=== PATIENT | female | born 1985 | race Caucasian/White ===

== ENCOUNTER 2018-11-17 20:33 | Emergency (ER) | payer MEDICAID ==
--- NOTE | 2018-11-17 21:37 | EDPHYS ---
Physician Documentation [facility] Name: Kitty Yen Age: 33 yrs Sex: Female : 1985 Arrival Date: 11/17/2018 Time: 20:34 Bed 11 Private MD: ED Physician Jorge Lanier HPI: 11/17 21:34 This 33 yrs old Female presents to ER via Ambulatory with complaints of jr8 Shoulder Pain. 21:34 The patient or guardian complains of pain. left shoulder. Context: The problem was jr8 sustained at home. Onset: The symptoms/episode began/occurred acutely, last night. Modifying factors: the symptoms are alleviated by nothing. The symptoms are aggravated by movement. Associated signs and symptoms: The patient has no apparent associated signs or symptoms. Severity of symptoms: At their worst the symptoms were mild, in the emergency department the symptoms are unchanged. The patient has not experienced similar symptoms in the past. The patient has not recently seen a physician. patient stated that she woke up with arm under her. Since then has had pain and soreness to left shoulder . 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 - Social history:: Smoking status: Patient/guardian denies using tobacco. - Ebola Screening: : No symptoms or risks identified at this time. ROS: 21:34 Eyes: Negative for injury, pain, redness, and discharge, ENT: Negative for injury, jr8 pain, and discharge, Neck: Negative for injury, pain, and swelling, Cardiovascular: Negative for chest pain, palpitations, and edema, Respiratory: Negative for shortness of breath, cough, wheezing, and pleuritic chest pain, Abdomen/GI: Negative for abdominal pain, nausea, vomiting, diarrhea, and constipation, Back: Negative for injury and pain, Skin: Negative for injury, rash, and discoloration, Neuro: Negative for headache, weakness, numbness, tingling, and seizure. 21:34 MS/extremity: Positive for pain, tenderness, of the left shoulder. Exam: 21:34 Eyes: Pupils equal round and reactive to light, extra-ocular motions intact. Lids and jr8 lashes normal. Conjunctiva and sclera are non-icteric and not injected. Cornea within normal limits. Periorbital areas with no swelling, redness, or edema. ENT: Nares patent. No nasal discharge, no septal abnormalities noted. Tympanic membranes are normal and external auditory canals are clear. Oropharynx with no redness, swelling, or masses, exudates, or evidence of obstruction, uvula midline. Mucous membranes moist. Neck: Trachea midline, no thyromegaly or masses palpated, and no cervical lymphadenopathy. Supple, full range of motion without nuchal rigidity, or vertebral point tenderness. No Meningismus. Cardiovascular: Regular rate and rhythm with a normal S1 and S2. No gallops, murmurs, or rubs. Normal PMI, no JVD. No pulse deficits. Respiratory: Lungs have equal breath sounds bilaterally, clear to auscultation and percussion. No rales, rhonchi or wheezes noted. No increased work of breathing, no retractions or nasal flaring. Abdomen/GI: Soft, non-tender, with normal bowel sounds. No distension or tympany. No guarding or rebound. No evidence of tenderness throughout. Back: No spinal tenderness. No costovertebral tenderness. Full range of motion. Skin: Warm, dry with normal turgor. Normal color with no rashes, no lesions, and no evidence of cellulitis. Neuro: Awake and alert, GCS 15, oriented to person, place, time, and situation. Cranial nerves II-XII grossly intact. Motor strength 5/5 in all extremities. Sensory grossly intact. Cerebellar exam normal. Normal gait. 21:34 Musculoskeletal/extremity: Extremities: grossly normal except: noted in the left shoulder: pain, tenderness, ROM: intact in all extremities, full active range of motion, full passive range of motion, limited active range of motion due to pain, limited passive range of motion due to pain, Circulation is intact in all extremities. Sensation intact. Vital Signs: 20:39 BP 117 / 82; Pulse 76; Resp 14 S; Temp 98.5(O); Pulse Ox 99% on R/A; Weight 63.5 kg bb (R); Height 5 ft. 6 in. (167.64 cm) (R); Pain 7/10; 20:39 Body Mass Index 22.60 (63.50 kg, 167.64 cm) mireya MDM: 21:09 Patient medically screened. jr8 21:34 Data reviewed: vital signs, nurses notes, and as a result, I will discharge patient. jr8 Data interpreted: Pulse oximetry: on room air is 99 %. Interpretation: normal. Counseling: I had a detailed discussion with the patient and/or guardian regarding: the historical points, exam findings, and any diagnostic results supporting the discharge/admit diagnosis, the need for outpatient follow up, a family practitioner, to return to the emergency department if symptoms worsen or persist or if there are any questions or concerns that arise at home. Administered Medications: No medications were administered Disposition: 11/17/18 21:37 Discharged to Home. Impression: Pain in left shoulder. - Condition is Stable. - Discharge Instructions: Joint Pain, Musculoskeletal Pain, Shoulder Pain. - Prescriptions for Ibuprofen 800 mg Oral Tablet - take 1 tablet by ORAL route every 12 hours As needed take with food; 20 tablet. Cyclobenzaprine 10 mg Oral Tablet - take 1 tablet by ORAL route every 8 hours As needed; 30 tablet. - Medication Reconciliation Form, Thank You Letter, Antibiotic Education, Prescription Opioid Use form. - Follow up: Private Physician; When: As needed; Reason: Recheck today's complaints, Continuance of care, Re-evaluation by your physician. - Problem is new. - Symptoms have improved. Addendum: 11/18/2018 22:31 Co-signature as Attending Physician, Jorge Lanier MD I agree with the assessment and t w4 plan of care. Signatures: Katelyn Agustin RN RN aj Ballard, Brenda, RN RN bb Roszak, Josh, PA PA jr8 Jorge Lanier MD MD tw4 Corrections: (The following items were deleted from the chart) 11/17 21:42 21:37 11/17/2018 21:37 Discharged to Home. Impression: Pain in left shoulder. Condition aj is Stable. Forms are Medication Reconciliation Form, Thank You Letter, Antibiotic Education, Prescription Opioid Use. Follow up: Private Physician; When: As needed; Reason: Recheck today's complaints, Continuance of care, Re-evaluation by your physician. Problem is new. Symptoms have improved. jr8
--- NOTE | 2018-11-17 21:37 | ER ---
Nurse's Notes [facility] Name: Kitty Yen Age: 33 yrs Sex: Female : 1985 Arrival Date: 11/17/2018 Time: 20:34 Bed 11 Private MD: Diagnosis: Pain in left shoulder Presentation: 11/17 20:35 Presenting complaint: Patient states: she must have slept wrong and woke up with left bb shoulder pain and feels like something is popping. Transition of care: patient was not received from another setting of care. Onset of symptoms was November 16, 2018. Risk Assessment: Do you want to hurt yourself or someone else? Patient reports no desire to harm self or others. Initial Sepsis Screen: Does the patient meet any 2 criteria? No. Patient's initial sepsis screen is negative. Does the patient have a suspected source of infection? No. Patient's initial sepsis screen is negative. Care prior to arrival: None. 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 - Social history:: Smoking status: Patient/guardian denies using tobacco. - Ebola Screening: : No symptoms or risks identified at this time. Screenin:32 Abuse screen: Denies threats or abuse. Denies injuries from another. Nutritional aj screening: No deficits noted. Tuberculosis screening: No symptoms or risk factors identified. Fall Risk None identified. Assessment: 21:32 General: Appears in no apparent distress. comfortable, Behavior is calm, cooperative, aj appropriate for age. Pain: Complains of pain in anterior aspect of left shoulder. Neuro: Level of Consciousness is awake, alert, obeys commands, Oriented to person, place, time, situation, Appropriate for age. Respiratory: Airway is patent Respiratory effort is even, unlabored, Respiratory pattern is regular, symmetrical. Derm: Skin is intact, is healthy with good turgor, Skin is pink, warm \T\ dry. normal. Musculoskeletal: Reports pain in anterior aspect of left shoulder. 21:41 Reassessment: Patient appears in no apparent distress at this time. No changes from aj previously documented assessment. Patient and/or family updated on plan of care and expected duration. Pain level reassessed. Patient is alert, oriented x 3, equal unlabored respirations, skin warm/dry/pink. Vital Signs: 20:39 BP 117 / 82; Pulse 76; Resp 14 S; Temp 98.5(O); Pulse Ox 99% on R/A; Weight 63.5 kg bb (R); Height 5 ft. 6 in. (167.64 cm) (R); Pain 7/10; 20:39 Body Mass Index 22.60 (63.50 kg, 167.64 cm) bb ED Course: 20:34 Patient arrived in ED. am2 20:38 Triage completed. bb 20:39 Arm band placed on left wrist. Patient placed in an exam room, on a stretcher, on pulse bb oximetry. Family accompanied patient. 21:09 [facility]ov[facility] Dinh [facility]. mary 21:09 Jorge Lanier MD is Attending Physician. 8 21:32 Katelyn Agustin, RN is Primary Nurse. aj 21:32 Patient has correct armband on for positive identification. aj 21:32 No provider procedures requiring assistance completed. Patient did not have IV access aj during this emergency room visit. Administered Medications: No medications were administered Outcome: 21:37 Discharge ordered by . jr8 21:41 Discharged to home ambulatory. aj 21:41 Condition: good 21:41 Discharge instructions given to patient, Instructed on discharge instructions, follow up and referral plans. medication usage, Demonstrated understanding of instructions, follow-up care, medications, Prescriptions given X 2. 21:42 Patient left the ED. aj Signatures: Katelyn Agustin, RN RN Celsa Dowell RN RN bb Roszak, Josh, PA PA jr8 Moreno, Amanda amJabari
== END 2018-11-17 21:42 | disposition home or self-care (01) ==
LOC: ER 20:33
DX: M25.512 Pain in left shoulder (principal)
CPT/HCPCS: 99283

== ENCOUNTER 2019-02-10 11:08 | Emergency (ER) | payer MEDICAID ==
[2019-02-10 11:39] LABS: Urine Blood 2+ (NEG); Urine Glucose NEGATIVE (NEG); Urine Protein TRACE (NEG); Urine Specific Gravity 1.015 (1.005-1.030); Urine pH 5.5 (5.0-7.0)
[2019-02-10 11:44] LABS: Absolute Lymphocytes (CBC) 2.3 K/uL (0.7-4.9); Absolute Monocytes 0.9 K/uL (0.1-1.3); Absolute Neutrophil 11.5 K/uL (1.8-8.0); Basophils % 0.1 % (0-1.3); Eosinophils % 0.9 % (0-4.4); Hematocrit 33.3 % (36.0-45.0); Lymphocytes % 15.7 % (15.3-44.8); MPV 8.8 fL (7.6-11.3); Monocytes % 5.8 % (3.3-12.3); RBC Red Blood Cell Count 3.63 M/uL (3.86-4.86)
[2019-02-10 12:04] LABS: BUN Blood Urea Nitrogen 9 mg/dL (7-18); Bicarbonate 28 mmol/L (21-32); Glucose Level 74 mg/dL (74-106); HCG, Quantitative < 1 mIU/mL (1-3); Potassium 3.4 mmol/L (3.5-5.1); Sodium Level 143 mmol/L (136-145)
--- NOTE | 2019-02-10 12:37 | EDPHYS ---
Physician Documentation [facility] Name: Kitty Yen Age: 33 yrs Sex: Female : 1985 Arrival Date: 02/10/2019 Time: 11:10 Bed 16 Private MD: ED Physician Fer Tubbs HPI: 02/10 11:48 This 33 yrs old Female presents to ER via Ambulatory with complaints of jr8 Vaginal Bleeding. 11:48 The patient presents with vaginal bleeding that is moderate, with clots. Onset: The jr8 symptoms/episode began/occurred gradually, 2 week(s) ago. Modifying factors: The symptoms are alleviated by nothing, the symptoms are aggravated by nothing. Associated signs and symptoms: The patient has no apparent associated signs or symptoms. Severity of symptoms: At their worst the symptoms were mild, in the emergency department the symptoms are unchanged. The patient's method of control includes nothing. The patient has not experienced similar symptoms in the past. The patient has not recently seen a physician. Stated that she started her menstrual cycle two weeks ago. Usually lasts for 4 days and then subsides. Has been going on for over two weeks now. Denies any other symptoms . 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 - Social history:: Smoking status: Patient/guardian denies using tobacco. - Ebola Screening: : No symptoms or risks identified at this time. ROS: 11:48 Eyes: Negative for injury, pain, redness, and discharge, ENT: Negative for injury, jr8 pain, and discharge, Neck: Negative for injury, pain, and swelling, Cardiovascular: Negative for chest pain, palpitations, and edema, Respiratory: Negative for shortness of breath, cough, wheezing, and pleuritic chest pain, Abdomen/GI: Negative for abdominal pain, nausea, vomiting, diarrhea, and constipation, Back: Negative for injury and pain, MS/Extremity: Negative for injury and deformity, Skin: Negative for injury, rash, and discoloration, Neuro: Negative for headache, weakness, numbness, tingling, and seizure. 11:48 : Positive for vaginal bleeding, menstrual abnormality. Exam: 11:48 Eyes: Pupils equal round and reactive to light, extra-ocular motions intact. Lids and jr8 lashes normal. Conjunctiva and sclera are non-icteric and not injected. Cornea within normal limits. Periorbital areas with no swelling, redness, or edema. ENT: Nares patent. No nasal discharge, no septal abnormalities noted. Tympanic membranes are normal and external auditory canals are clear. Oropharynx with no redness, swelling, or masses, exudates, or evidence of obstruction, uvula midline. Mucous membranes moist. Neck: Trachea midline, no thyromegaly or masses palpated, and no cervical lymphadenopathy. Supple, full range of motion without nuchal rigidity, or vertebral point tenderness. No Meningismus. Cardiovascular: Regular rate and rhythm with a normal S1 and S2. No gallops, murmurs, or rubs. Normal PMI, no JVD. No pulse deficits. Respiratory: Lungs have equal breath sounds bilaterally, clear to auscultation and percussion. No rales, rhonchi or wheezes noted. No increased work of breathing, no retractions or nasal flaring. Abdomen/GI: Soft, non-tender, with normal bowel sounds. No distension or tympany. No guarding or rebound. No evidence of tenderness throughout. Back: No spinal tenderness. No costovertebral tenderness. Full range of motion. Skin: Warm, dry with normal turgor. Normal color with no rashes, no lesions, and no evidence of cellulitis. MS/ Extremity: Pulses equal, no cyanosis. Neurovascular intact. Full, normal range of motion. Neuro: Awake and alert, GCS 15, oriented to person, place, time, and situation. Cranial nerves II-XII grossly intact. Motor strength 5/5 in all extremities. Sensory grossly intact. Cerebellar exam normal. Normal gait. Vital Signs: 11:13 BP 136 / 84; Pulse 98; Resp 16 S; Temp 98.0(TE); Pulse Ox 100% on R/A; Weight 70.31 kg aa5 (R); Height 5 ft. 6 in. (167.64 cm) (R); Pain 4/10; 12:25 BP 127 / 89; Pulse 94; Resp 17; Pulse Ox 99% on R/A; tw2 13:08 BP 119 / 86; Pulse 92; Resp 17; Pulse Ox 99% on R/A; tw2 11:13 Body Mass Index 25.02 (70.31 kg, 167.64 cm) aa5 MDM: 11:18 Patient medically screened. 8 12:36 Data reviewed: vital signs, nurses notes, lab test result(s), and as a result, I will 8 discharge patient. Data interpreted: Pulse oximetry: on room air is 99 %. Interpretation: normal. Counseling: I had a detailed discussion with the patient and/or guardian regarding: the historical points, exam findings, and any diagnostic results supporting the discharge/admit diagnosis, lab results, the need for outpatient follow up, an OB/Gyne specialist, to return to the emergency department if symptoms worsen or persist or if there are any questions or concerns that arise at home. 02/10 11:28 Order name: CBC with Diff; Complete Time: 12:[address] [facility] 02/10 11:28 Order name: Basic Metabolic Panel; Complete Time: 12:[address] [facility] 02/10 11:28 Order name: HCG-Quantitative; Complete Time: 12:[address] [facility] 02/10 11:35 Order name: Urine Dipstick--Ancillary (enter results); Complete Time: 11:48 bd 02/10 11:35 Order name: Urine --Ancillary (enter results); Complete Time: 11:48 bd Administered Medications: No medications were administered Disposition: 16:11 Co-signature as Attending Physician, Fer Tubbs MD. rn Disposition: 02/10/19 12:36 Discharged to Home. Impression: Abnormal uterine and vaginal bleeding, unspecified. - Condition is Stable. - Discharge Instructions: Abnormal Uterine Bleeding. - Medication Reconciliation Form, Thank You Letter, Antibiotic Education, Prescription Opioid Use form. - Follow up: Private Physician; When: 2 - 3 days; Reason: Recheck today's complaints, Continuance of care, Re-evaluation by your physician. - Problem is new. - Symptoms have improved. Signatures: Dispatcher [employer] EDFer Madison MD MD rn Calderon, Audri, RN RN aa5 Jovani Dinh PA PA jr8 Estee Molina RN RN tw2 Corrections: (The following items were deleted from the chart) 13:09 12:36 02/10/2019 12:36 Discharged to Home. Impression: Abnormal uterine and vaginal tw2 bleeding, unspecified. Condition is Stable. Forms are Medication Reconciliation Form, Thank You Letter, Antibiotic Education, Prescription Opioid Use. Follow up: Private Physician; When: 2 - 3 days; Reason: Recheck today's complaints, Continuance of care, Re-evaluation by your physician. Problem is new. Symptoms have improved. jr8
--- NOTE | 2019-02-10 12:37 | ER ---
Nurse's Notes [facility] Name: Kitty Yen Age: 33 yrs Sex: Female : 1985 Arrival Date: 02/10/2019 Time: 11:10 Bed 16 Private MD: Diagnosis: Abnormal uterine and vaginal bleeding, unspecified Presentation: 02/10 11:11 Presenting complaint: Patient states: vaginal bleeding that began 13 days ago. Pt aa5 states "I started bleeding 1 week before my period and about 3 days ago it seemed like I passed some tissue looking thing". Pt c/o left lower abd pain. Pt states "I don't know if I am ". Transition of care: patient was not received from another setting of care. Onset of symptoms was January 2019. Risk Assessment: Do you want to hurt yourself or someone else? Patient reports no desire to harm self or others. Initial Sepsis Screen: Does the patient meet any 2 criteria? No. Patient's initial sepsis screen is negative. Does the patient have a suspected source of infection? No. Patient's initial sepsis screen is negative. Care prior to arrival: None. 11:11 Method Of Arrival: Ambulatory aa5 11:11 Acuity: PENNY 3 aa5 Triage Assessment: 13:09 General: Appears in no apparent distress. Behavior is calm, cooperative, appropriate tw2 for age. 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 - Social history:: Smoking status: Patient/guardian denies using tobacco. - Ebola Screening: : No symptoms or risks identified at this time. Screenin:19 Abuse screen: Denies threats or abuse. Nutritional screening: No deficits noted. tw2 Tuberculosis screening: No symptoms or risk factors identified. Fall Risk None identified. Assessment: 11:20 General: Appears in no apparent distress. Behavior is calm, cooperative, appropriate tw2 for age. Pain: Complains of pain in pelvis. Neuro: Level of Consciousness is awake, alert, obeys commands, Oriented to person, place, time, situation. Cardiovascular: Heart tones S1 S2 Capillary refill < 3 seconds Patient's skin is warm and dry. Respiratory: Airway is patent Respiratory effort is even, unlabored, Respiratory pattern is regular, symmetrical, Breath sounds are clear bilaterally. GI: No signs and/or symptoms were reported involving the gastrointestinal system. Abdomen is flat, Bowel sounds present X 4 quads. : Urine is blood tinged, Reports vaginal bleeding that is bright red, moderate flow. EENT: No signs and/or symptoms were reported regarding the EENT system. Derm: No signs and/or symptoms reported regarding the dermatologic system. Musculoskeletal: No signs and/or symptoms reported regarding the musculoskeletal system. Circulation, motion, and sensation intact. Range of motion: intact in all extremities. 12:25 Reassessment: Patient appears in no apparent distress at this time. No changes from tw2 previously documented assessment. Patient and/or family updated on plan of care and expected duration. Pain level reassessed. Patient is alert, oriented x 3, equal unlabored respirations, skin warm/dry/pink. 13:09 Reassessment: Patient appears in no apparent distress at this time. No changes from tw2 previously documented assessment. Patient and/or family updated on plan of care and expected duration. Pain level reassessed. Patient is alert, oriented x 3, equal unlabored respirations, skin warm/dry/pink. Vital Signs: 11:13 BP 136 / 84; Pulse 98; Resp 16 S; Temp 98.0(TE); Pulse Ox 100% on R/A; Weight 70.31 kg aa5 (R); Height 5 ft. 6 in. (167.64 cm) (R); Pain 4/10; 12:25 BP 127 / 89; Pulse 94; Resp 17; Pulse Ox 99% on R/A; tw2 13:08 BP 119 / 86; Pulse 92; Resp 17; Pulse Ox 99% on R/A; tw2 11:13 Body Mass Index 25.02 (70.31 kg, 167.64 cm) aa5 ED Course: 11:10 Patient arrived in ED. rg4 11:11 Arm band placed on. aa5 11:13 Triage completed. aa5 11:18 Jovani Dinh PA is PHCP. jr8 11:18 Fer Tubbs MD is Attending Physician. jr8 11:19 Molina, Estee, RN is Primary Nurse. tw2 11:19 Placed in gown. Bed in low position. Pulse ox on. NIBP on. tw2 11:40 Inserted saline lock: 22 gauge in left antecubital area, using aseptic technique. Blood tw2 collected. 13:09 No provider procedures requiring assistance completed. IV discontinued, intact, tw2 bleeding controlled, No redness/swelling at site. Pressure dressing applied. Administered Medications: No medications were administered Outcome: 12:36 Discharge ordered by MD. hernandez 13:09 Discharged to home ambulatory, with family. tw2 13:09 Condition: stable 13:09 Discharge instructions given to patient, family, Instructed on discharge instructions, follow up and referral plans. Demonstrated understanding of instructions, follow-up care. 13:09 Patient left the ED. tw2 Signatures: Lucille Peacock, RN RN aa5 Jovani Dinh PA PA jr8 Estee Molina RN RN tw2 hSu Kaufman 4
== END 2019-02-10 13:09 | disposition home or self-care (01) ==
LOC: ER 11:08
DX: N93.9 Abnormal uterine and vaginal bleeding, unspecified (principal); F41.9 Anxiety disorder, unspecified; F32.9 Major depressive disorder, single episode, unspecified
CPT/HCPCS: 36415; 80048; 81003; 81025; 84702; 85025; 99283

== ENCOUNTER 2022-11-30 10:02 | Emergency (ER) | payer OTHER ==
--- NOTE | 2022-11-30 11:16 | ER ---
Nurse's Notes [facility] Name: Kitty Fairbanks Age: 37 yrs Sex: Female : 1985 Arrival Date: 11/30/2022 Time: 10:05 Bed 11 Private MD: Diagnosis: Radiculopathy, cervical region Presentation: 11/30 10:24 Chief complaint: Right sided neck pain that radiates to right arm upon waking today. hb Coronavirus screen: At this time, the client does not indicate any symptoms associated with coronavirus-19. Ebola Screen: No symptoms or risks identified at this time. Initial Sepsis Screen: Does the patient meet any 2 criteria? No. Patient's initial sepsis screen is negative. Does the patient have a suspected source of infection? No. Patient's initial sepsis screen is negative. Risk Assessment: Do you want to hurt yourself or someone else? Patient reports no desire to harm self or others. Onset of symptoms was November 30, 2022. 10:24 Method Of Arrival: Ambulatory hb 10:24 Acuity: PENNY 4 hb Historical: - Allergies: 10:25 suspected gasous anestesia; hb - PMHx: 10:25 Anxiety; Depression; Rheumatoid Arthritis; hb - Immunization history:: Adult Immunizations up to date. - Social history:: Smoking status: Reported history of juuling and/or vaping. Screenin:30 [facility] ED Fall Risk Assessment (Adult) History of falling in the last 3 months, aa5 including since admission No falls in past 3 months (0 pts) Confusion or Disorientation No (0 pts) Intoxicated or Sedated No (0 pts) Impaired Gait No (0 pts) Mobility Assist Device Used No (0 pt) Altered Elimination No (0 pt) Score/Fall Risk Level 0 - 2 = Low Risk. Abuse screen: Denies threats or abuse. Nutritional screening: No deficits noted. Tuberculosis screening: No symptoms or risk factors identified. Assessment: 10:30 General: Appears uncomfortable, Behavior is calm, cooperative. Pain: Complains of pain aa5 in right side of neck Pain currently is 8 out of 10 on a pain scale. Quality of pain is described as sharp, Is continuous. Neuro: Level of Consciousness is awake, alert, obeys commands, Oriented to person, place, time, situation. Cardiovascular: Patient's skin is warm and dry. Respiratory: Airway is patent Respiratory effort is even, unlabored, Respiratory pattern is regular, symmetrical. GI: No signs and/or symptoms were reported involving the gastrointestinal system. : No signs and/or symptoms were reported regarding the genitourinary system. EENT: No signs and/or symptoms were reported regarding the EENT system. Derm: Skin is pink, warm \T\ dry. Musculoskeletal: Range of motion: intact in all extremities. 11:45 Reassessment: Patient is alert, oriented x 3, equal unlabored respirations, skin aa5 warm/dry/pink. Patient states feeling better. Patient states symptoms have improved. Vital Signs: 10:24 BP 113 / 84; Pulse 79; Resp 16; Temp 97.8; Pulse Ox 100% on R/A; Weight 86.18 kg; hb Height 5 ft. 6 in. (167.64 cm); Pain 8/10; 10:24 Body Mass Index 30.67 (86.18 kg, 167.64 cm) hb ED Course: 10:05 Patient arrived in ED. rg4 10:05 Thalia Dial FNP-C [facility]. snw 10:05 Neo Rodriguez MD is Attending Physician. snw 10:25 Triage completed. hb 10:25 Arm band placed on. hb 10:30 Patient has correct armband on for positive identification. Bed in low position. Call aa5 light in reach. Side rails up X 1. 11:45 No provider procedures requiring assistance completed. Patient did not have IV access aa5 during this emergency room visit. Administered Medications: 11:22 Drug: Ketorolac 30 mg Route: IM; Site: left gluteus; aa5 11:45 Follow up: Response: No adverse reaction; Pain is decreased aa5 11:22 Drug: Valium (diazepam) 5 mg Route: PO; aa5 11:45 Follow up: Response: No adverse reaction aa5 Medication: 11:45 VIS not applicable for this client. aa5 Outcome: 11:16 Discharge ordered by . snw 11:45 Discharged to home ambulatory, with family. aa5 11:45 Condition: improved 11:45 Discharge instructions given to patient, Instructed on discharge instructions, follow up and referral plans. medication usage, Demonstrated understanding of instructions, follow-up care, medications, Prescriptions given X 2. 11:47 Patient left the ED. aa5 Signatures: Thalia Dial, PRINCIPAL TECHNICAL ARCHITECT-C PRINCIPAL TECHNICAL ARCHITECT-Csnw Lucille Peacock, RN RN aa5 Zoila Por, RN RN Shu Abbasi 4
--- NOTE | 2022-11-30 11:16 | EDPHYS ---
Physician Documentation [facility] Name: Kitty Fairbanks Age: 37 yrs Sex: Female : 1985 Arrival Date: 11/30/2022 Time: 10:05 Bed 11 Private MD: ED Physician Neo Rodriguez HPI: 11/30 14:14 This 37 yrs old Female presents to ER via Ambulatory with complaints of Neck Pain, snw <24hrs Old, Shoulder Pain, Arm Pain. 14:14 The patient or guardian complains of tenderness. The symptoms are located on the right snw posterior aspect of neck, right lateral aspect of neck and right anterior aspect of neck. Onset: The symptoms/episode began/occurred acutely, and became persistent. Context: The problem was sustained at home, The neck injury/problem resulted from Pt believes she slept wrong. The pain radiates to the right arm. Severity of symptoms: At their worst the symptoms were moderate. The patient has experienced a previous episode. The patient has not recently seen a physician. Historical: - Allergies: 10:25 suspected gasous anestesia; hb - PMHx: 10:25 Anxiety; Depression; Rheumatoid Arthritis; hb - Immunization history:: Adult Immunizations up to date. - Social history:: Smoking status: Reported history of juuling and/or vaping. ROS: 14:13 Constitutional: Negative for fever, chills, and weight loss, Eyes: Negative for injury, snw pain, redness, and discharge, ENT: Negative for injury, pain, and discharge, Cardiovascular: Negative for chest pain, palpitations, and edema, Respiratory: Negative for shortness of breath, cough, wheezing, and pleuritic chest pain, Abdomen/GI: Negative for abdominal pain, nausea, vomiting, diarrhea, and constipation, Back: Negative for injury and pain, : Negative for injury, bleeding, discharge, and swelling, MS/Extremity: Negative for injury and deformity, Skin: Negative for injury, rash, and discoloration, Neuro: Negative for headache, weakness, numbness, tingling, and seizure. 14:13 Neck: Positive for pain with movement, pain at rest, stiffness. Exam: 11:29 Constitutional: This is a well developed, well nourished patient who is awake, alert, snw and in no acute distress. Head/Face: Normocephalic, atraumatic. Eyes: Pupils equal round and reactive to light, extra-ocular motions intact. Lids and lashes normal. Conjunctiva and sclera are non-icteric and not injected. Cornea within normal limits. Periorbital areas with no swelling, redness, or edema. ENT: Nares patent. No nasal discharge, no septal abnormalities noted. Tympanic membranes are normal and external auditory canals are clear. Oropharynx with no redness, swelling, or masses, exudates, or evidence of obstruction, uvula midline. Mucous membranes moist. Chest/axilla: Normal chest wall appearance and motion. Nontender with no deformity. No lesions are appreciated. Cardiovascular: Regular rate and rhythm with a normal S1 and S2. No gallops, murmurs, or rubs. Normal PMI, no JVD. No pulse deficits. Respiratory: Lungs have equal breath sounds bilaterally, clear to auscultation and percussion. No rales, rhonchi or wheezes noted. No increased work of breathing, no retractions or nasal flaring. Abdomen/GI: Soft, non-tender, with normal bowel sounds. No distension or tympany. No guarding or rebound. No evidence of tenderness throughout. Back: No spinal tenderness. No costovertebral tenderness. Full range of motion. Skin: Warm, dry with normal turgor. Normal color with no rashes, no lesions, and no evidence of cellulitis. MS/ Extremity: Pulses equal, no cyanosis. Neurovascular intact. Full, normal range of motion. Neuro: Awake and alert, GCS 15, oriented to person, place, time, and situation. Cranial nerves II-XII grossly intact. Motor strength 5/5 in all extremities. Sensory grossly intact. Cerebellar exam normal. Normal gait. Psych: Awake, alert, with orientation to person, place and time. Behavior, mood, and affect are within normal limits. 11:29 Neck: External neck: is normal, C-spine: appears grossly normal, no vertebral tenderness, ROM/movement: limited range of motion, that is moderate, with flexion. Vital Signs: 10:24 BP 113 / 84; Pulse 79; Resp 16; Temp 97.8; Pulse Ox 100% on R/A; Weight 86.18 kg; hb Height 5 ft. 6 in. (167.64 cm); Pain 8/10; 10:24 Body Mass Index 30.67 (86.18 kg, 167.64 cm) hb MDM: 10:18 Patient medically screened. snw 14:13 Differential diagnosis: arthritis, Neck Contusion Osteoarthritis torticollis. Data snw reviewed: vital signs, nurses notes. Care significantly affected by the following chronic conditions: RA. Counseling: I had a detailed discussion with the patient and/or guardian regarding: the historical points, exam findings, and any diagnostic results supporting the discharge/admit diagnosis, the presence of at least one elevated blood pressure reading (>120/80) during this emergency department visit, the need for outpatient follow up, to return to the emergency department if symptoms worsen or persist or if there are any questions or concerns that arise at home. Special discussion: Based on the history and exam findings, there is no indication for further emergent testing or inpatient evaluation. I discussed with the patient/guardian the need to see the primary care provider for further evaluation of the symptoms. I discussed with the patient/guardian the need to see the craft manager for further evaluation of the symptoms. Administered Medications: 11:22 Drug: Ketorolac 30 mg Route: IM; Site: left gluteus; aa5 11:45 Follow up: Response: No adverse reaction; Pain is decreased aa5 11:22 Drug: Valium (diazepam) 5 mg Route: PO; aa5 11:45 Follow up: Response: No adverse reaction aa5 Disposition: 12:53 Co-signature as Attending Physician, Neo Rodriguez MD I reviewed the patient's care rt provided by the Advanced Practice Provider and agree with the diagnosis and treatment plan. Disposition Summary: 11/30/22 11:16 Discharge Ordered Location: Home snw Condition: Stable snw Diagnosis - Radiculopathy, cervical region snw Followup: snw - With: Emergency Department - When: As needed - Reason: Worsening of condition Followup: snw - With: Private Physician - When: 2 - 3 days - Reason: Recheck today's complaints, Continuance of care, Re-evaluation by your physician Discharge Instructions: - Discharge Summary Sheet snw - Cervical Radiculopathy snw - Heat Therapy snw Forms: - Medication Reconciliation Form snw - Thank You Letter snw - Antibiotic Education snw - Prescription Opioid Use snw Prescriptions: - Prednisone 20 mg Oral Tablet - take 2 tablets by ORAL route once daily for 5 days; 10 tablet; Refills: 0, snw Product Selection Permitted - orphenadrine citrate 100 mg Oral Tablet Sustained Release - take 1 tablet by ORAL route 2 times per day As needed; 20 tablet; Refills: 0, snw Product Selection Permitted Signatures: Thalia Dial, KRYSTIN-C AUTOGLAZIER-Csnw Lucille Peacock RN RN aa5 Zoila Pro RN RN Neo Rodriguez MD MD rt
[2022-11-30] MEDS ORDERED: KETOROLAC 30 MG/ML INJ ONE (11:21)
[2022-11-30] MEDS ORDERED: DIAZEPAM 5 MG TABLET ONE (11:21)
[2022-11-30 11:54] VITALS: BP 113/84; TEMP 97.8; O2SAT 100
== END 2022-11-30 11:47 | disposition home or self-care (01) ==
LOC: ER 10:02
DX: M54.12 Radiculopathy, cervical region (principal)
CPT/HCPCS: 96372; 99283

== ENCOUNTER 2025-03-03 17:18 | Emergency (ER) | payer SELFPAY ==
--- OUTSIDE RECORDS SUMMARY | 2025-03-03 17:21 | XMS REPORT | Continuity of Care Document ---
Author Name Unknown Address [address] [facility] [address] [place] [address] [facility] [place] Address [address] [facility]. 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 Name Role Phone Maureen Montgomery Primary Care Physician [phone] LORA PERRY Attending Clinician Unavailable COSME KEENAN Attending Clinician COSME Cuellar Attending Clinician Basil chatterjee Lab, Ang - Db Attending Clinician Unavailable Pob, Adc Lab Main Attending Clinician UnavailDeepa Ferro MD Attending Clinician [phone] DEEPA COURTNEY Attending Clinician Unavailable Doctor Unassigned, [place] Attending Clinician U Natasha Vega Attending Clinician [phone] NATASHA INGRAM Attending Clinician Unavailable Livier Fuller MD Attending Clinician [phone] LIVIER FULLER Attending Clinician Unavailable Dudley Liao DO Attending Clinician [phone] COSME KEENAN Admitting Clinician Basil chatterjee Payers Payer Name Policy Type Policy Number Effective Date Expirati on Date Source Numbrs AG [facility] STAR [id number] 2022 00:00:00 Problems Condition Name Condition Details Condition Category Status Onset Date Resolution Date Last Treatment Date Treating Clinician Comments Source Bilateral hand pain Bilateral hand pain Disease Active 07-26 00:00: 00 [facility] Cervical radiculopa thy Cervical radiculopa thy Disease Active - 00:00: 00 [facility] Follow-up exam Follow-up exam Disease Active 12-04 00:00: 00 [facility] Attempting to conceive Attempting to conceive Disease Active 2021-11 00:00: 00 [facility] BMI 36.0-36.9, adult BMI 36.0-36.9, adult Disease Active 2021-11 00:00: 00 [facility] Need for hepatitis C screening test Need for hepatitis C screening test Disease Active 07-04 00:00: 00 [facility] Class 1 obesity without serious comorbidit y with body mass index (BMI) of 33.0 to 33.9 in adult, unspecifie d obesity type Class 1 obesity without serious comorbidit y with body mass index (BMI) of 33.0 to 33.9 in adult, unspecifie d obesity type Disease Active 2019-11 00:00: 00 [facility] Abnormal uterine bleeding (AUB) Abnormal uterine bleeding (AUB) Disease Active 2019-11 00:00: 00 [facility] Well woman exam with routine gynecologi cathi exam Well woman exam with routine gynecologi cathi exam Disease Active 03-10 00:00: 00 [facility] Missed menses Missed menses Disease Active 03-10 00:00: 00 [facility] BMI 26.0-26.9, adult BMI 26.0-26.9, adult Disease Active 03-10 00:00: 00 [facility] BMI 26.0-26.9, adult BMI 26.0-26.9, adult Disease Active 03-10 00:00: 00 [facility] Allergies, Adverse Reactions, Alerts Allergy Name Allergy Type Status Severity Reaction(s) Onset Date Inactive Date Treating Clinician Comments Source Propofol Propensi ty to adverse reaction s to drug Active Other - See comments 03-10 00:00: 00 Patient states she goes unconscio us when receives anesthesi a [facility] PROPOFOL DRUG INGREDI Active High Other-Cmnt 03-10 00:00: 00 [facility] Anesthes ia (Not Checked) Propensi ty to adverse reaction to drug Active 03-08 00:00: 00 Social History Social Habit Start Date Stop Date Quantity Comments Source Sexual orientation [facility] History SDOH Alcohol Frequency [facility] History SDOH Alcohol Std Drinks [facility] History SDOH Alcohol Binge [facility] Alcohol intake 2024-02-04 00:00:00 2024-02-04 00:00:00 Current drinker of alcohol (finding) [facility] History of Social function 2023-07-26 00:00:00 2023-07-26 00:00:00 [facility] Exposure to SARS-CoV-2 (event) 2022-11-23 00:00:00 2022-12-03 14:37:00 Yes [facility] Tobacco use and exposure 2022-09-14 00:00:00 2022-09-14 00:00:00 Smokeless tobacco non-user [facility] Tobacco Comment 2022-07-04 00:00:00 2022-07-04 00:00:00 vapes [facility] Alcohol Comment 2022-07-04 00:00:00 2022-07-04 00:00:00 rare [facility] History of tobacco use 2020-11-04 00:00:00 Cigarette Smoker [facility] Sex Assigned At 1985 00:00:00 1985 00:00:00 [facility] Smoking Status Start Date Stop Date Source Ex-smoker 2022-09-14 00:00:00 2022-09-14 00:00:00 [facility] Smokes tobacco daily 2022-07-04 00:00:00 [facility] Medications Ordered Medication Name Filled Medication Name Start Date Stop Date Current Medication? Ordering Clinician Indication Dosage Frequency Signature (SIG) Comments Components Source ibuprofen 800 mg tablet 07-26 00:00: 00 Yes [id number] 800mg Take 1 tablet by mouth every 6 (six) hours as needed for Pain (scale 4-6). [facility] methylPREDN ISolone (MEDROL, LUCIEN,) 4 mg tablets 07-26 00:00: 00 08-01 04:59 :00 No [id number] Take by mouth SEE-INSTRU CTIONS for 5 days. follow package directions [facility] orphenadrin e 100 mg SR tablet 12-04 15:36: 03 12-04 00:00 :00 No 100mg Take 100 mg by mouth every 12 (twelve) hours. [facility] cyclobenzap rine 5 mg tablet 12-04 00:00: 00 Yes [id number] 5mg Take 1 tablet by mouth in the morning and 1 tablet at noon and 1 tablet in the evening. [facility] ibuprofen 800 mg tablet 12-04 00:00: 00 12-19 05:59 :00 No [id number] 800mg Take 1 tablet by mouth every 6 (six) hours as needed for Pain (scale 4-6) for up to 14 days. [facility] predniSONE 20 mg tablet 11-30 00:00: 00 07-26 00:00 :00 No [facility] No known medications 2021-11 10:17: 15 No No known medication s [facility] No known medications 2021-11 11:12: 56 No No known medication s [facility] No known medications 07-04 08:31: 57 No No known medication s [facility] amoxicillin 500 mg tablet 07-17 00:00: 00 No 1mg Lexapro 10 mg tablet 06-21 00:00: 00 No 1mg Lexapro 10 mg tablet 05-31 00:00: 00 No 1mg trazodone 100 mg tablet 05-03 00:00: 00 No 12mg Lexapro 10 mg tablet 03-08 00:00: 00 No 1mg trazodone 50 mg tablet 03-08 00:00: 00 No 12mg Immunizations Ordered Immunization Name Filled Immunization Name Date Status Comments Source TDAP 2022-03-26 00:00:00 Completed [facility] Influenza Virus Vaccine Quad .5 mL IM 6+ MO 2022-03-26 00:00:00 Completed [facility] SARS-COV-2 COVID-19 PFIZER VACCINE 2021-10-23 00:00:00 Completed [facility] SARS-COV-2 COVID-19 PFIZER VACCINE 2021-10-23 00:00:00 Completed [facility] SARS-COV-2 COVID-19 PFIZER VACCINE 2021-10-23 00:00:00 Completed [facility] SARS-COV-2 COVID-19 PFIZER VACCINE 2021-10-23 00:00:00 Completed [facility] SARS-COV-2 COVID-19 PFIZER VACCINE 2021-10-23 00:00:00 Completed [facility] SARS-COV-2 COVID-19 PFIZER VACCINE 2021-10-23 00:00:00 Completed [facility] SARS-COV-2 COVID-19 PFIZER VACCINE 2021-10-23 00:00:00 Completed [facility] SARS-COV-2 COVID-19 PFIZER VACCINE 2021-10-23 00:00:00 Completed [facility] SARS-COV-2 COVID-19 PFIZER VACCINE 2021-10-02 00:00:00 Completed [facility] SARS-COV-2 COVID-19 PFIZER VACCINE 2021-10-02 00:00:00 Completed [facility] SARS-COV-2 COVID-19 PFIZER VACCINE 2021-10-02 00:00:00 Completed [facility] SARS-COV-2 COVID-19 PFIZER VACCINE 2021-10-02 00:00:00 Completed [facility] SARS-COV-2 COVID-19 PFIZER VACCINE 2021-10-02 00:00:00 Completed [facility] SARS-COV-2 COVID-19 PFIZER VACCINE 2021-10-02 00:00:00 Completed [facility] SARS-COV-2 COVID-19 PFIZER VACCINE 2021-10-02 00:00:00 Completed [facility] SARS-COV-2 COVID-19 PFIZER VACCINE 2021-10-02 00:00:00 Completed [facility] TDAP 2012-12-05 00:00:00 Completed [facility] TDAP 2012-12-05 00:00:00 Completed [facility] TDAP 2012-12-05 00:00:00 Completed [facility] TDAP 2012-12-05 00:00:00 Completed [facility] TDAP 2012-12-05 00:00:00 Completed [facility] TDAP 2012-12-05 00:00:00 Completed [facility] TDAP 2012-12-05 00:00:00 Completed [facility] TDAP 2012-12-05 00:00:00 Completed [facility] HEP B, Adult Dosage 2011-06-14 00:00:00 Completed [facility] TDAP 2011-06-14 00:00:00 Completed [facility] HEP B, Adult Dosage 2011-01-26 00:00:00 Completed [facility] HEP B, Adult Dosage 2010-12-26 00:00:00 Completed [facility] Tetanus/Diptheria 2003-06-02 00:00:00 Completed [facility] MMR 1999-05-31 00:00:00 Completed [facility] DTP 1993-04-07 00:00:00 Completed [facility] Poliovirus, Live, Oral, Trivalent 1993-04-07 00:00:00 Completed [facility] DTP 1993-01-13 00:00:00 Completed [facility] Poliovirus, Live, Oral, Trivalent 1993-01-13 00:00:00 Completed [facility] DTP 1988-12-31 00:00:00 Completed [facility] Poliovirus, Live, Oral, Trivalent 1988-12-31 00:00:00 Completed [facility] MMR 1988-11-12 00:00:00 Completed [facility] DTP 1987 00:00:00 Completed [facility] Poliovirus, Live, Oral, Trivalent 1987 00:00:00 Completed [facility] TDAP Unknown Completed [facility] SARS-COV-2 COVID-19 PFIZER VACCINE Unknown Completed [facility] DTP Unknown Completed [facility] HEP B, Adult Dosage Unknown Completed [facility] MMR Unknown Completed [facility] Poliovirus, Live, Oral, Trivalent Unknown Completed [facility] Tetanus/Diptheria Unknown [facility]ine Quad .5 mL IM 6+ MO (FLUZONE/FLULAVAL/F LUARIX) Unknown Completed [facility] TDAP Unknown Completed [facility] SARS-COV-2 COVID-19 PFIZER VACCINE Unknown Completed [facility] DTP Unknown Completed [facility] HEP B, Adult Dosage Unknown Completed [facility] MMR Unknown Completed [facility] Poliovirus, Live, Oral, Trivalent Unknown Completed [facility] Tetanus/Diptheria Unknown [facility] Influ[facility] Virus Vaccine Quad .5 mL IM 6+ MO (FLUZONE/FLULAVAL/F LUARIX) Unknown Completed [facility] TDAP Unknown Completed [facility] SARS-COV-2 COVID-19 PFIZER VACCINE Unknown Completed [facility] DTP Unknown Completed [facility] HEP B, Adult Dosage Unknown Completed [facility] MMR Unknown Completed [facility] Poliovirus, Live, Oral, Trivalent Unknown Completed [facility]anus[facility]heria [facility]ine [facility] .5 mL IM 6+ MO (FLUZONE/FLULAVAL/F LUARIX) Unknown Completed [facility] TDAP Unknown Completed [facility] SARS-COV-2 COVID-19 PFIZER VACCINE Unknown Completed [facility] DTP Unknown Completed [facility] HEP B, Adult Dosage Unknown Completed [facility] MMR Unknown Completed [facility] Poliovirus, Live, Oral, Trivalent Unknown Completed [facility] Tetanus/Diptheria Unknown [facility]ine Quad .5 mL IM 6+ MO (FLUZONE/FLULAVAL/F LUARIX) Unknown Completed [facility] TDAP Unknown Completed [facility] SARS-COV-2 COVID-19 PFIZER VACCINE Unknown Completed [facility] DTP Unknown Completed [facility] HEP B, Adult Dosage Unknown Completed [facility] MMR Unknown Completed [facility] Poliovirus, Live, Oral, Trivalent Unknown Completed [facility] Tetanus/Diptheria Unknown [facility] Influ[facility] Virus Vaccine Quad .5 mL IM 6+ MO (FLUZONE/FLULAVAL/F LUARIX) Unknown Completed [facility] Tetanus/Diptheria Unknown [facility] Vaccine Quad .5 mL IM 6+ MO (FLUZONE/FLULAVAL/F LUARIX) Unknown Completed [facility] TDAP Unknown Completed [facility] SARS-COV-2 COVID-19 PFIZER VACCINE Unknown Completed [facility] DTP Unknown Completed [facility] HEP B, Adult Dosage Unknown Completed [facility] MMR Unknown Completed [facility] Poliovirus, Live, Oral, Trivalent Unknown Completed [facility] Tetanus/Diptheria Unknown [facility] Influ[facility] Virus Vaccine Quad .5 mL IM 6+ MO (FLUZONE/FLULAVAL/F LUARIX) Unknown Completed [facility] TDAP Unknown Completed [facility] SARS-COV-2 COVID-19 PFIZER VACCINE Unknown Completed [facility] DTP Unknown Completed [facility] HEP B, Adult Dosage Unknown Completed [facility] MMR Unknown Completed [facility] Poliovirus, Live, Oral, Trivalent Unknown Completed [facility] TDAP Unknown Completed [facility] SARS-COV-2 COVID-19 PFIZER VACCINE Unknown Completed [facility] DTP Unknown Completed [facility] HEP B, Adult Dosage Unknown Completed [facility] MMR Unknown Completed [facility] Poliovirus, Live, Oral, Trivalent Unknown Completed [facility] Tetanus/Diptheria Unknown [facility] Virus Vaccine Quad .5 mL IM 6+ MO (FLUZONE/FLULAVAL/F LUARIX) Unknown Completed [facility] Tetanus/Diptheria Unknown [facility] Virus Vaccine Quad .5 mL IM 6+ MO (FLUZONE/FLULAVAL/F LUARIX) Unknown Completed [facility] TDAP Unknown Completed [facility] SARS-COV-2 COVID-19 PFIZER VACCINE Unknown Completed [facility] DTP Unknown Completed [facility] HEP B, Adult Dosage Unknown Completed [facility] MMR Unknown Completed [facility] Poliovirus, Live, Oral, Trivalent Unknown Completed [facility] TDAP Unknown Completed [facility] SARS-COV-2 COVID-19 PFIZER VACCINE Unknown Completed [facility] DTP Unknown Completed [facility] HEP B, Adult Dosage Unknown Completed [facility] MMR Unknown Completed [facility] Poliovirus, Live, Oral, Trivalent Unknown Completed [facility] Tetanus/Diptheria Unknown [facility]ine Quad .5 mL IM 6+ MO (FLUZONE/FLULAVAL/F LUARIX) Unknown Completed [facility] TDAP Unknown Completed [facility] SARS-COV-2 COVID-19 PFIZER VACCINE Unknown Completed [facility] DTP Unknown Completed [facility] HEP B, Adult Dosage Unknown Completed [facility] MMR Unknown Completed [facility] Poliovirus, Live, Oral, Trivalent Unknown Completed [facility] Tetanus/Diptheria Unknown [facility] Quad .5 mL IM 6+ MO (FLUZONE/FLULAVAL/F LUARIX) Unknown Completed [facility] Vital Signs Vital Name Observation Time Observation Value Comments S ource Systolic blood pressure 2024-02-04 13:56:00 117 mm[Hg] [facility] Diastolic blood pressure 2024-02-04 13:56:00 84 mm[Hg] [facility] Heart rate 2024-02-04 13:56:00 85 [facility] 2024-02-04 13:56:00 18 /min [facility] Body height 2024-02-04 13:56:00 167.6 cm [facility] Body weight 2024-02-04 13:56:00 102.604 kg [facility] BMI 2024-02-04 13:56:00 36.51 kg/m2 [facility] Systolic blood pressure 2023-11-15 18:47:00 125 mm[Hg] [facility] Diastolic blood pressure 2023-11-15 18:47:00 81 mm[Hg] [facility] Heart rate 2023-11-15 18:47:00 95 /min [facility] Body temperature 2023-11-15 18:47:00 36.67 Janneth [facility] Respiratory rate 2023-11-15 18:47:00 18 /min [facility] Body height 2023-11-15 18:47:00 167.6 cm [facility] 2023-11-15 18:47:00 102.513 kg [facility] BMI 2023-11-15 18:47:00 36.48 kg/m2 [facility] Systolic blood pressure 2023-07-26 18:20:00 119 mm[Hg] [facility] Diastolic blood pressure 2023-07-26 18:20:00 75 mm[Hg] [facility] Heart rate 2023-07-26 18:20:00 90 /min [facility] Respiratory rate 2023-07-26 18:20:00 18 /min [facility] Body height 2023-07-26 18:20:00 167.6 cm [facility] Body weight 2023-07-26 18:20:00 97.07 kg [facility] BMI 2023-07-26 18:20:00 34.54 kg/m2 [facility] Oxygen saturation in Arterial blood by Pulse oximetry 2023-07-26 18:20:00 99 /min [facility] Systolic blood pressure 2022-12-04 21:23:00 105 mm[Hg] [facility] Diastolic blood pressure 2022-12-04 21:23:00 74 mm[Hg] [facility] Heart rate 2022-12-04 21:23:00 75 /min [facility] Body temperature 2022-12-04 21:23:00 36.78 Janneth [facility] Body height 2022-12-04 21:23:00 167.6 cm [facility] Body weight 2022-12-04 21:23:00 93.441 kg [facility] BMI 2022-12-04 21:23:00 33.25 kg/m2 [facility] Oxygen saturation in Arterial blood by Pulse oximetry 2022-12-04 21:23:00 98 /min [facility] Systolic blood pressure 2022-09-14 16:10:00 106 mm[Hg] [facility] Diastolic blood pressure 2022-09-14 16:10:00 73 mm[Hg] [facility] Heart rate 2022-09-14 16:10:00 98 /min [facility] Body temperature 2022-09-14 16:10:00 36.94 Janneth [facility] Respiratory rate 2022-09-14 16:10:00 18 /min [facility] Body height 2022-09-14 16:10:00 167.6 cm [facility] Body weight 2022-09-14 16:10:00 93.985 kg [facility] BMI 2022-09-14 16:10:00 33.44 kg/m2 [facility] Systolic blood pressure 2022-09-07 15:58:00 99 mm[Hg] [facility] Diastolic blood pressure 2022-09-07 15:58:00 66 mm[Hg] [facility] Heart rate 2022-09-07 15:58:00 81 /min [facility] Body height 2022-09-07 15:58:00 167.6 cm [facility] Body weight 2022-09-07 15:58:00 93.441 kg [facility] BMI 2022-09-07 15:58:00 33.25 kg/m2 [facility] Oxygen saturation in Arterial blood by Pulse oximetry 2022-09-07 15:58:00 99 /min [facility] Systolic blood pressure 2022-07-04 13:29:00 104 mm[Hg] [facility] Diastolic blood pressure 2022-07-04 13:29:00 72 mm[Hg] [facility] Heart rate 2022-07-04 13:29:00 84 /min [facility] Body temperature 2022-07-04 13:29:00 36.78 Janneth [facility] Body height 2022-07-04 13:29:00 167.6 cm [facility] Body weight 2022-07-04 13:29:00 95.255 kg [facility] BMI 2022-07-04 13:29:00 33.89 kg/m2 [facility] Oxygen saturation in Arterial blood by Pulse oximetry 2022-07-04 13:29:00 100 /min [facility] BP Systolic 2022-05-11 15:39:00 111 mm[Hg] BP Diastolic 2022-05-11 15:39:00 79 mm[Hg] Weight Measured 2022-05-11 15:39:00 210.80 pounds Height Measured 2022-05-11 15:39:00 67.00 inches Body Temperature 2022-05-11 15:39:00 98.30 degrees Heart Rate 2022-05-11 15:39:00 89.00 /min Respiratory Rate 2022-05-11 15:39:00 BP Systolic 2018-07-14 10:16:00 109 mm[Hg] BP Diastolic 2018-07-14 10:16:00 73 mm[Hg] Weight Measured 2018-07-14 10:16:00 145.20 pounds Height Measured 2018-07-14 10:16:00 67.00 inches Body Temperature 2018-07-14 10:16:00 98.10 degrees Heart Rate 2018-07-14 10:16:00 93.00 /min Respiratory Rate 2018-07-14 10:16:00 17.00 /min BP Systolic 2016-07-17 16:05:00 107 mm[Hg] BP Diastolic 2016-07-17 16:05:00 74 mm[Hg] Weight Measured 2016-07-17 16:05:00 192.00 pounds Height Measured 2016-07-17 16:05:00 67.00 inches Body Temperature 2016-07-17 16:05:00 98.20 degrees Heart Rate 2016-07-17 16:05:00 90.00 /min Respiratory Rate 2016-07-17 16:05:00 18.00 /min BP Systolic 2016-06-21 15:38:00 120 mm[Hg] BP Diastolic 2016-06-21 15:38:00 80 mm[Hg] Weight Measured 2016-06-21 15:38:00 189.00 pounds Height Measured 2016-06-21 15:38:00 67.00 inches Body Temperature 2016-06-21 15:38:00 98.60 degrees Heart Rate 2016-06-21 15:38:00 76.00 /min Respiratory Rate 2016-06-21 15:38:00 16.00 /min BP Systolic 2016-06-20 11:06:00 104 mm[Hg] BP Diastolic 2016-06-20 11:06:00 71 mm[Hg] Weight Measured 2016-06-20 11:06:00 188.40 pounds Height Measured 2016-06-20 11:06:00 67.00 inches Body Temperature 2016-06-20 11:06:00 98.50 degrees Heart Rate 2016-06-20 11:06:00 77.00 /min Respiratory Rate 2016-06-20 11:06:00 18.00 /min BP Systolic 2016-05-31 13:34:00 123 mm[Hg] BP Diastolic 2016-05-31 13:34:00 86 mm[Hg] Weight Measured 2016-05-31 13:34:00 173.00 pounds Height Measured 2016-05-31 13:34:00 67.00 inches Body Temperature 2016-05-31 13:34:00 98.00 degrees Heart Rate 2016-05-31 13:34:00 77.00 /min Respiratory Rate 2016-05-31 13:34:00 BP Systolic 2016-03-08 13:49:00 134 mm[Hg] BP Diastolic 2016-03-08 13:49:00 89 mm[Hg] Weight Measured 2016-03-08 13:49:00 196.00 pounds Height Measured 2016-03-08 13:49:00 67.00 inches Body Temperature 2016-03-08 13:49:00 98.00 degrees Heart Rate 2016-03-08 13:49:00 74.00 /min Respiratory Rate 2016-03-08 13:49:00 BP Systolic 2016-02-09 13:10:00 104 mm[Hg] BP Diastolic 2016-02-09 13:10:00 65 mm[Hg] Weight Measured 2016-02-09 13:10:00 190.80 pounds Height Measured 2016-02-09 13:10:00 67.00 inches Body Temperature 2016-02-09 13:10:00 98.60 degrees Heart Rate 2016-02-09 13:10:00 84.00 /min Respiratory Rate 2016-02-09 13:10:00 15.00 /min BP Systolic 2016-02-09 13:04:00 104 mm[Hg] BP Diastolic 2016-02-09 13:04:00 65 mm[Hg] Weight Measured 2016-02-09 13:04:00 190.80 pounds Height Measured 2016-02-09 13:04:00 67.00 inches Body Temperature 2016-02-09 13:04:00 98.60 degrees Heart Rate 2016-02-09 13:04:00 84.00 /min Respiratory Rate 2016-02-09 13:04:00 15.00 /min BP Systolic 2015-12-14 15:47:00 115 mm[Hg] BP Diastolic 2015-12-14 15:47:00 79 mm[Hg] Weight Measured 2015-12-14 15:47:00 176.20 pounds Height Measured 2015-12-14 15:47:00 67.00 inches Body Temperature 2015-12-14 15:47:00 98.00 degrees Heart Rate 2015-12-14 15:47:00 71.00 /min Respiratory Rate 2015-12-14 15:47:00 15.00 /min Procedures Procedure Date / Time Performed Performing Clinician Source US PELVIS COMPLETE WITH TRANSVAGINAL 2024-02-11 14:15:00 Cosme Keenan [facility] POCT TEST 2023-11-15 00:00:00 AdumDeepa [facility] URIC ACID 2023-07-26 18:55:00 Natasha Ingram [facility] RHEUMATOID FACTOR 2023-07-26 18:55:00 Natasha Ingram [facility] C-REACTIVE PROTEIN 2023-07-26 18:55:00 [facility] 2023-07-26 18:55:00 Natasha Ingram Un [facility] ASSIGNMENT OF BENEFITS 2023-07-26 18:08:34 Docto r Unassigned, [place] [facility] REFERRAL- REQUEST/RESPONSE 2022-09-14 06:01:00 Doctor Unassigned, [place] [facility] [facility] Plan of Care Planned Activity Planned Date Details Comments Source Goal Plan of Care Note [code = 15644-7] Goal Plan of Care Note [code = 43390-4] Goal Plan of Care Note [code = 85136-9] Goal Plan of Care Note [code = 50760-7] Goal Plan of Care Note [code = 32194-8] Goal Plan of Care Note [code = 73418-1] Goal Plan of Care Note [code = 38727-8] Goal Plan of Care Note [code = 84534-5] Goal Plan of Care Note [code = 69917-2] Goal Plan of Care Note [code = 31986-0] Goal Plan of Care Note [code = 82127-6] Goal Plan of Care Note [code = 63337-3] Encounters Start Date/Time End Date/Time Encounter Type Admission Type Attending Clinicians Care Facility Care Department Encounter ID Source 2024-02-11 08:44:38 2024-02-11 23:59:00 [facility] [id number] 2024-02-11 08:44:38 2024-02-11 23:59:00 Hospital Encounter Veronique pichardo Cosme [facility] 1..840.114 350.1.13.10 4.2.7.2.686 [id number] [facility] 2024-02-06 08:30:00 2024-02-06 08:45:00 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[facility] 1..840.114 350.1.13.10 4.2.7.2.686 [id number] [facility] 2024-02-06 08:30:00 2024-02-06 08:15:50 [facility]patient [facility] [id number] [facility] 2024-02-04 09:00:00 2024-02-04 09:09:22 Outpatient DAVID ROSSSOL VERONIQUE S, COSME [facility] [id number] [facility] 2024-02-04 09:00:00 2024-02-04 09:09:22 Office Visit Cosme Goodman [facility] 1.2.840.114 350.1.13.10 4.2.7.2.686 [id number] [facility] 2024-01-16 11:45:00 2024-01-16 12:00:00 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 Visit Pob, Adc Lab Main AdDeepa freeman [facility] 1.2.840.114 350.1.13.10 4.2.7.2.686 [id number] [facility] 2024-01-16 11:45:00 2024-01-16 11:45:00 Outpatient R MARI DEEPA [facility] [id number] [facility] 2024-01-13 00:00:00 2024-01-13 00:00:00 Telephone AdpeteDeepa [facility] 1.2.840.114 350.1.13.10 4.2.7.2.686 [id number] [facility] 2023-11-15 13:00:00 2023-11-15 13:55:09 Outpatient R MARI DEEPA [facility] [id number] [facility] 2023-11-15 13:00:00 2023-11-15 13:55:09 Office Visit MarlonDeepa freeman [facility] 1.2.840.114 350.1.13.10 4.2.7.2.686 [id number] [facility] 2023-11-12 13:00:00 2023-11-12 13:00:00 Outpatient R MARI DEEPA [facility] [id number] [facility] 2023-11-08 00:00:00 2023-11-08 00:00:00 Telephone AdDeepa freeman [facility] 1.84.114 350.1.13.10 4.2.7.2.686 [id number] [facility] 2023-11-08 00:00:00 2023-11-08 00:00:00 Patient Secure Msg Doctor Unassigned, Swede Heaven [facility] 1.84.114 350.1.13.10 4.2.7.2.686 [id number] [facility] 2023-10-22 13:30:00 2023-10-22 13:30:00 Outpatient R DEEPA COURTNEY [facility] [id number] [facility] 2023-07-26 14:45:00 2023-07-26 14:45:00 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, [place] - Silvestre Ingram Natasha [facility] 1.84.114 350.1.13.10 4.2.7.2.686 [id number] [facility] 2023-07-26 13:30:00 2023-07-26 13:44:48 Outpatient R NATASHA INGRAM [facility] [id number] [facility] 2023-07-26 13:30:00 2023-07-26 13:44:48 [facility] 1.84.114 350.1.13.10 4.2.7.2.686 [id number] [facility] 2023-07-26 00:00:00 2023-07-26 00:00:00 Orders Only Doctor Unassigned, Swede Heaven [facility] 1.0.114 350.1.13.10 4.2.7.2.686 [id number] [facility] 2022-12-04 15:30:00 2022-12-04 15:40:31 Outpatient R NATASHA INGRAM [facility] [id number] [facility] 2022-12-04 15:30:00 2022-12-04 15:40:31 Office Visit Juan Jose Natasha [facility] 1.2.840.114 350.1.13.10 4.2.7.2.686 [id number] [facility] 2022-09-14 10:00:00 2022-09-14 11:06:48 Outpatient R DEEPA COURTNEY [facility] [id number] [facility] 2022-09-14 10:00:00 2022-09-14 11:06:48 Office Visit Deepa Courtney [facility] 1..840.114 350.1.13.10 4.2.7.2.686 [id number] [facility] 2022-09-14 00:00:00 2022-09-14 00:00:00 Orders Only Doctor Unassigned, Swede Heaven [facility] 1.84.114 350.1.13.10 4.2.7.2.686 [id number] [facility] 2022-09-07 11:30:00 2022-09-07 11:45:00 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, [place] - Silvestre Ingram Natasha [facility] 1..840.114 350.1.13.10 4.2.7.2.686 [id number] [facility] 2022-09-07 11:30:00 2022-09-07 11:30:00 Outpatient R NATASHA INGRAM [facility] [id number] [facility] 2022-09-07 11:00:00 2022-09-07 11:30:00 Office Visit Natasha Ingram [facility] 1.840.114 350.1.13.10 4.2.7.2.686 [id number] [facility] 2022-07-06 13:00:00 2022-07-06 13:00:00 Outpatient R NATASHA INGRAM [facility] [id number] [facility] 2022-07-04 13:00:00 2022-07-04 13:00:00 Outpatient R NATASHA INGRAM [facility] [id number] [facility] 2022-07-04 09:30:00 2022-07-04 09:45:00 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, [place] Juan Jose Hugh [facility] 1.840.114 350.1.13.10 4.2.7.2.686 [id number] [facility] 2022-07-04 09:30:00 2022-07-04 09:30:00 Outpatient R NATASHA INGRAM [facility] [id number] [facility] 2022-07-04 08:30:00 2022-07-04 09:05:31 Outpatient R NATASHA INGRAM [facility] [id number] [facility] 2022-07-04 08:30:00 2022-07-04 09:05:31 Office Visit Natasha Ingram [facility] 1..840.114 350.1.13.10 4.2.7.2.686 [id number] [facility] 2022-07-04 00:00:00 2022-07-04 00:00:00 Orders Only Doctor Unassigned, Swede Heaven [facility] 1.840.114 350.1.13.10 4.2.7.2.686 [id number] [facility] 2022-07-04 00:00:00 2022-07-04 00:00:[address] [facility] 1.840.114 350.1.13.10 4.2.7.2.686 [id number] [facility] 2022-05-11 00:00:00 2022-05-11 00:00:00 Outpatient Visit [id number] 2021-11-15 00:00:00 2021-11-15 00:00:00 Livier Storey [facility] 1.840.114 350.1.13.10 4.2.7.2.686 [id number] [facility] 2021-10-12 09:00:00 2021-10-12 09:00:00 Outpatient R LIVIER FULLER [facility] [id number] [facility] 2021-01-24 00:00:00 2021-01-24 00:00:00 Patient Outreach Dduley Liao [facility] 1.840.114 350.1.13.10 4.2.7.2.686 [id number] [facility] 2020-10-11 14:45:00 2020-10-11 14:45:00 Outpatient R LIVIER FULLER [facility] [id number] [facility] 2020-10-11 00:00:00 2020-10-11 00:00:00 Orders Only Doctor Unassigned, Swede Heaven [facility] 1.2840.114 350.1.13.10 4.2.7.2.686 [id number] [facility] Results Test Description Test Time Test Comments Results Resul t Comments Source US PELVIS COMPLETE WITH TRANSVAGINAL 9 15:58:27 EXAM: US PELVIS COMPLETE WITH TRANSVAGINAL HISTORY: 38 years -old Female with AUB . LMP = 02/05/2024 TECHNIQUE: Transabdominal and transvaginal ultrasound imaging of the pelviswas performed including color Doppler evaluation. Jewel Hole Cornerer imageswere obtained for the record. COMPARISON: None FINDINGS: Uterus: Size: 7.9 x 4.2 x 5.1 cmMyometrium: HomogenousMasses: None.Cervix: Nabothian cysts.Endometrial thickness: 6 mmEndometrium: Normal Right Adnexa:Ovary size: 4.2 x 1.8 x 3.0 cm, 12.5 ml.Ovary appearance: A simple cyst measures 3.1 x 1.8 x 2.8 cm. Left Adnexa:Ovary size: 2.9 x 2.1 x 1.9 cm, 6.5 mL.Ovary appearance: A dominant follicle measures 1.1 cm. Cul-de-sac: No free fluid. [id number] 19:00:00* Test Item Value Reference Range Interpretation Comme [facility] POCT PREG (test code = 1605) Negative On board controls acceptable with C Line (test code = 3574) Yes POCT PREG LOT # (test code = 3575) POCT PREG TEST DATE ( test code = 3576) [facility] [id number] 17:17:19* Test Item Value Reference Range Interpretation Comme [facility] CRP (test code = 9670909359) 0.8 mg/dL <=0.8 H Lab Interpretation (test cod e = 47514-9) Abnormal [facility] Hospital[facility]HE[facility]AT[facility] [id number] 15:40:13* Test Item Value Reference Range Interpretation Comme nts RF (test code = 4136782749) See_Comment [Automated messa ge] The system which generated this result transmitted reference range: <20 IU/mL. The reference range was not used to interpret this result as normal/abnormal. Lab Interpretation (test code = 07685-6) Normal [facility] HospitalSEDIMENTATION [id number] 22:28:50* Test Item Value Reference Range Interpretation Comme nts ESR (test code = 52196-3) 19 See_Comment [Automated message] The system which generated this result transmitted reference range: 0 - 20 mm/HR. The reference range was not used to interpret this result as normal/abnormal. Lab Interpretation (test code = 76410-3) Normal [facility] HospitalURIC [id number] 20:50:15* Test Item Value Reference Range Interpretation Comme nts URIC ACID (test code = 9256587066) 3.6 mg/dL 2.9-6.0 Lab Interpretation (test cod e = 92082-4) Normal [facility] Hospital[facility]PRE[facility]ENSIVE METABOLIC [id number] 00:00:00* Test Item Value Reference Range Interpretation Comme nts GLUCOSE (test code = 2217) 88 MG/DL BUN (test code = 2208) 11 MG/DL CREATININE (test code = 2214) 0.74 MG/DL eGFR AMER. (test cod e = 89292) 128 ML/MIN/1.73 eGFR NON- AMER. (test code = 67133) 110 ML/MIN/1.73 CALCULATED BUN/CREAT (test code = 2235) 15 RATIO SODIUM (test code = 2231) 140 MEQ/L POTASSIUM (test code = 2228) 3.7 MEQ/L CHLORIDE (test code = 2215) 104 MEQ/L CARBON DIOXIDE (test code = 2206) 24 MEQ/L CALCIUM (test code = 2209) 9.4 MG/DL PROTEIN, TOTAL (test code = 2229) 7.1 G/DL ALBUMIN (test code = 2201) 4.4 G/DL CALCULATED GLOBULIN (test code = 2240) 2.7 G/DL CALCULATED A/G RATIO (test code = 2234) 1.6 RATIO BILIRUBIN, TOTAL (test code = 2207) 0.4 MG/DL ALKALINE PHOSPHATASE (test code = 2204) 104 U/L SGOT (AST) (test code = 2218) 18 U/L SGPT (ALT) (test code = 2219) 9 U/L LIPID [id number] 00:00:00* Test Item Value Reference Range Interpretation Comme nts CHOLESTEROL (test code = 2210) 138 MG/DL TRIGLYCERIDES (test code = 2232) 152 MG/DL HDL CHOLESTEROL (test code = 2220) 41 MG/DL CALCULATED LDL CHOL (test co de = 223) 67 MG/DL RISK RATIO LDL/HDL (test cod e = 2238) 1.62 RATIO CBC W/AUTO [id number] 00:00:00* Test Item Value Reference Range Interpretation Comme nts WBC (test code = 1001) 7.1 K/UL RBC (test code = 1002) 4.45 M/UL HEMOGLOBIN (test code = 1003) 12.8 G/DL HEMATOCRIT (test code = 1004) 39.9 % MCV (test code = 1005) 89.7 fL MCH (test code = 1006) 28.8 PG MCHC (test code = 1007) 32.1 G/DL RDW (test code = 1038) 12.4 % NEUTROPHILS (test code = 1008) 57 % LYMPHOCYTES (test code = 1010) 31 % MONOCYTES (test code = 1011) 9 % EOSINOPHILS (test code = 1012) 2 % BASOPHILS (test code = 1013) % PLATELET COUNT (test code = 1015) 280 K/UL HEMOGLOBIN [id number] 00:00:00* Test Item Value Reference Range Interpretation Comme nts HEMOGLOBIN A1c (test code = 82618) 4.9 % THYROID II PROFILE (T3U, T4, T7, TSH)2015-12-15 00:00:00* Test Item Value Reference Range Interpretation Comme nts T3 UPTAKE (test code = 2817) 27.1 % T4 (THYROXINE) (test code = 2819) 8.3 UG/DL CALCULATED T7 (FTI) (test co de = 2820) 2.25 TSH (test code = 2821) 1.0 UIU/ML Notes Date/Time Note Provider Source 2024-02-11 09:00:00 Pelvic US shows a normal uterus. Small right ovarian cyst. T [facility] 2024-02-06 08:30:00 Images from the original note were not included. Venipuncture collection performed by clean technique on the left anticubitus. Total of 1 attempts were made. Slight pressure and a bandage/dressing were applied to the site(s). The patient experienced no complications. The following specimens were processed according to instructions and sent to [facility] laboratories per lab order on 02/06/2024 : LT BLUE SST 2 RED LAV PPT DK GREEN (LiHep) DK GREEN (SodH) THOMAS DK BLUE (K2) DK BLUE (S) ACD Blood Culture NIPT/NTD T [facility] 2024-01-16 11:45:00 Images from the original note were not included. Venipuncture collection performed by clean technique on the right anticubitus. Total of 1 attempts were made. Slight pressure and a bandage/dressing were applied to the site(s). The patient experienced no complications. The following specimens were processed according to instructions and sent to [facility] laboratories per lab order on 01/16/2024 : LT BLUE SST 1 RED LAV PPT DK GREEN (LiHep) DK GREEN (SodH) THOMAS DK BLUE (K2) DK BLUE (S) ACD Blood Culture NIPT/NTD [facility] 2024-01-14 11:02:18 Addended by: DOUGLAS THOMPSON on: 01/14/2024 11:02 AM Modules accepted: Orders T [facility] 2024-01-14 11:01:[address] Courtney: Order HCG. Lab ordered. Patient notified. Patient will be walk in at hospital lab. Douglas Thompson RN 01/14/2024 11:02 AM T [facility] 2024-01-13 12:10:26 Spoke with patient. Patient states she had a period in beginning of December and not one this month. Patient seen 11/2023 for same issue. Patient was advised at that appointment to keep menstrual journal and return in about 6 months. Patient advised to keep menstrual journal and follow up as requested. Patient reports fatigue and nausea. Patient reports 2 negative urine tests at home. Patient reports previous pregnancies her urine tests were negative but blood tests were positive. Patient requesting hcg testing. Patient advised I would speak with Dr. Courtney. Douglas Thompson RN 01/13/2024 12:13 PM Douglas Thompson RN [facility] 2024-01-13 11:20:30 Patient says she been skipping cycles want to discuss, says she was seen for this previously. Marisabel Shields [facility] 2023-11-08 15:42:40 Pt has been scheduled with Dr. Courtney. TRON MICROPROBE OPERATOR Renata Aguirre [facility] 2023-11-08 10:19:38 Name and verified. Pt stated that she has not had a period for 2 months. Took test in the beginning of October- negative. Has not taken another test. Instructed pt to take a test and let us know so we may schedule the right type of appt. Verbalized understanding. RIRI PADILLA RN 11/08/2023 10:20 AM TRON MICROPROBE OPERATOR Riri Padilla RN [facility] 2023-11-08 08:13:23 Pt requesting call back from clinic, states is having irregular menstrual cycles and has missed her last 2. Dr. Courtney has no avail until january, pt open to seeing other provider, requesting to be worked in for sooner appt. Please F/u TRON MICROPROBE OPERATOR Nathan Romero [facility]
[2025-03-03] MEDS ORDERED: ACETAMINOPHEN 500 MG TAB ONE (17:59)
[2025-03-03] MEDS ORDERED: IBUPROFEN 400 MG TAB ONE (18:00)
--- NOTE | 2025-03-03 20:25 | ER ---
Nurse's Notes [facility] Name: Kitty Fairbanks Age: 39 yrs Sex: Female : 1985 Arrival Date: 03/03/2025 Time: 17:18 Bed IW1 Private MD: Diagnosis: Otalgia, right ear Presentation: 03/03 17:50 Chief complaint: Patient states: right ear pain from ear into jaw and neck , started iw yesterday. Coronavirus screen: At this time, the client does not indicate any symptoms associated with coronavirus-19. Ebola Screen: No symptoms or risks identified at this time. Initial Sepsis Screen: Does the patient meet any 2 criteria? No. Patient's initial sepsis screen is negative. Does the patient have a suspected source of infection? No. Patient's initial sepsis screen is negative. Risk Assessment: Do you want to hurt yourself or someone else? Patient reports no desire to harm self or others. Onset of symptoms was March 02, 2025. 17:50 Method Of Arrival: Ambulatory iw 17:50 Acuity: PENNY 4 iw [employer]: 17:52 LMP 02/24/2025, unknown iw Historical: - Allergies: 17:51 suspected gasous anestesia; iw 17:51 steroids; iw 17:51 super glue; iw - Home Meds: 17:51 None [Active]; iw - PMHx: 17:51 Anxiety; Depression; Rheumatoid Arthritis; iw - PSHx: 17:51 None; iw - Immunization history:: Adult Immunizations not up to date. - Infectious Disease History:: Denies. - Social history:: Smoking status: Reported history of juuling and/or vaping. Assessment: 21:35 Reassessment: ASSUMED TRIAGE AT 1939. dd2 Vital Signs: 17:50 BP 129 / 89; Pulse 95; Resp 19; Temp 97.9; Pulse Ox 99% on R/A; Weight 95.25 kg; Height iw 5 ft. 6 in. ; Pain 8/10; 17:50 Body Mass Index 33.89 (95.25 kg, 167.64 cm) iw 17:50 Pain Scale: Adult iw ED Course: 17:27 Patient arrived in ED. im 17:29 Osei Cruz PA is PHCP. cp 17:29 Osei Bueno MD is Attending Physician. cp 17:51 Triage completed. iw 17:52 Arm band placed on. iw Administered Medications: 18:13 Drug: Ibuprofen PO 800 mg PO once Route: PO; iw 18:13 Drug: Acetaminophen PO 1000 mg PO once Route: PO; iw Outcome: 20:25 Discharge ordered by . cp 21:35 Discharged to home dd2 21:35 Condition: stable 21:35 Discharge instructions given to PT LEFT PRIOR TO D/C INSTRUCTIONS, RX AND EDUCATION. PT LEFT PRIOR TO VS RECHECK Instructed on PT LEFT PRIOR TO D/C PACKET, RX AND VS RECHECK Demonstrated understanding of PT LEFT PRIOR TO D/C PACKET AND RX 21:37 Patient left the ED. dd2 Signatures: Nicole Sweeney, RN RN iw Osei Cruz, KODAK PA cp Megha Back DIANA, RN RN dd2
--- NOTE | 2025-03-03 20:25 | EDPHYS ---
Physician Documentation [facility] Name: Kitty Fairbanks Age: 39 yrs Sex: Female : 1985 Arrival Date: 03/03/2025 Time: 17:18 Bed IW1 Private MD: ED Physician Osei Bueno HPI: 03/03 18:00 This 39 yrs old Female presents to ER via Ambulatory with complaints of Ear Pain. cp 18:00 The patient presents with pain, that is acute. cp 18:00 The complaints affect the right ear. cp 18:00 Onset: The symptoms/episode began/occurred yesterday. Associated signs and symptoms: cp Pertinent positives: radiating pain to right jaw and right side of neck. positive sore throat, Pertinent negatives: cough, fever, lightheadedness, sinus trouble, tinnitus, vomiting. Severity of symptoms: in the emergency department the symptoms are unchanged despite home interventions. 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 - Infectious Disease History:: Denies. - Social history:: Smoking status: Reported history of juuling and/or vaping. ROS: 18:05 Constitutional: Negative for body aches, chills, fever, poor PO intake, cp 18:05 Eyes: Negative for injury, pain, redness, and discharge, cp 18:05 ENT: Positive for ear pain, sore throat, Negative for drainage from ear(s), difficulty swallowing, difficulty handling secretions, 18:05 Respiratory: Negative for cough, shortness of breath, wheezing, 18:05 Abdomen/GI: Negative for abdominal pain, vomiting, diarrhea, constipation, 18:05 Neuro: Negative for altered mental status, headache, weakness, 18:05 All other systems are negative, Exam: 18:10 Constitutional: The patient appears in no acute distress, alert, awake, non-toxic, well cp developed, well nourished, 18:10 Head/Face: Normocephalic, atraumatic. cp 18:10 Eyes: Periorbital structures: appear normal, Conjunctiva: normal, no exudate, no injection, Sclera: no appreciated abnormality, Lids and lashes: appear normal, bilaterally, 18:10 ENT: External ear(s): right ear tender to palpation, Ear canal(s): clear bilaterally with no swelling and/or erythema, TM's: bulging, is not appreciated, bilaterally, dullness, bilaterally, erythema, is not appreciated, bilaterally, Nose: is normal, Mouth: Lips: moist, Oral mucosa: moist, Posterior pharynx: Airway: no evidence of obstruction, patent, 18:10 Neck: ROM/movement: is normal, is supple, Lymph nodes: no appreciated lymphadenopathy, 18:10 Chest/axilla: Inspection: normal, 18:10 Cardiovascular: Rate: normal, 18:10 Respiratory: the patient does not display signs of respiratory distress, Respirations: normal, no use of accessory muscles, no retractions, labored breathing, is not present, Breath sounds: are clear throughout, no decreased breath sounds, no stridor, no wheezing, 18:10 Abdomen/GI: Inspection: abdomen appears normal, Vital Signs: 17:50 BP 129 / 89; Pulse 95; Resp 19; Temp 97.9; Pulse Ox 99% on R/A; Weight 95.25 kg; Height iw 5 ft. 6 in. ; Pain 8/10; 17:50 Body Mass Index 33.89 (95.25 kg, 167.64 cm) iw 17:50 Pain Scale: Adult iw MDM: 17:49 Medical Screening Exam initiated cp 19:00 Differential diagnosis: otitis media, otitis externa, ruptured TM, foreign body, acute cp otalgia, cerumen impaction, barotrauma . 20:25 Data reviewed: vital signs, nurses notes, lab test result(s), and as a result, I will cp discharge patient. 20:25 I considered the following discharge prescriptions or medication management in the emergency department Medications were administered in the Emergency Department. See MAR. 20:25 Counseling: I had a detailed discussion with the patient and/or guardian regarding the cp historical points, exam findings, and any diagnostic results supporting the discharge/admit diagnosis, to return to the emergency department if symptoms worsen or persist or if there are any questions or concerns that arise at home. Response to treatment: the patient's symptoms have mildly improved after treatment, and as a result, I will discharge patient. 03/03 17:55 Order name: Group A Streptococcus Rapid; Complete Time: 20:24 cp 03/03 20:24 Interpretation: Reviewed. cp 03/03 18:43 Order name: Throat Culture EDMS Administered Medications: 18:13 Drug: Ibuprofen PO 800 mg PO once Route: PO; iw 18:13 Drug: Acetaminophen PO 1000 mg PO once Route: PO; iw Disposition Summary: 03/03/25 20:25 Discharge Ordered Notes: Location: Home cp Problem: new cp Symptoms: have improved cp Condition: Stable cp Diagnosis - Otalgia, right ear cp Followup: cp - With: Private Physician - When: 2 - 3 days - Reason: Recheck today's complaints Discharge Instructions: - Discharge Summary Sheet cp - Earache, Adult cp Forms: - Medication Reconciliation Form cp - Antibiotic Education cp - Prescription Opioid Use cp - Patient Portal Instructions cp - Leadership Thank You Letter cp Prescriptions: - Ibuprofen 800 mg Oral Tablet - take 1 tablet ORAL route every 8 hours As needed take with food; 30 tablet; cp Refills: 0, Product Selection Permitted - Zyrtec-D 5-120 mg Oral Tablet Sustained Release 12 hr - take 1 tablet ORAL route every 12 hours As needed; 20 tablet; Refills: 0, cp Product Selection Permitted Signatures: Dispatcher [employer] Nicole Brandon, RN RN iw Osei Cruz PA PA cp
[2025-03-03 21:55] VITALS: BP 129/89; TEMP 97.9; O2SAT 99
== END 2025-03-03 21:37 | disposition home or self-care (01) ==
LOC: ER 17:18
DX: H92.01 Otalgia, right ear (principal)
CPT/HCPCS: 36415; 87070